=== PATIENT | female | born 1995 | race Caucasian/White ===

== ENCOUNTER 2021-10-24 11:35 | Outpatient (CLI) | payer BC ==
[2021-10-24 12:42] LABS: Creatinine,Urine Random 83.1 mg/dL; Protein/Creatinine Ratio,Urine 0.096
[2021-10-24 12:44] LABS: Appearance,Urine Clear (Clear); Bacteria,Urine Rare /hpf; Bilirubin,Urine Negative (Negative); Blood,Urine Negative (Negative); Color,Urine Yellow; Glucose,Urine (UA) Negative (Negative); Ketones,Urine Negative (Negative); Leukocyte Esterase,Urine Large (Negative); Mucus,Urine Rare /hpf; Nitrite,Urine Negative (Negative); PH, Urine 6.5 (5.0-8.0); Protein,Urine Negative (Negative); Specific Gravity,Urine 1.016 (1.001-1.035); Squamous Epithelial Cell,Urine 3 /hpf (0-4); Urobilinogen,Urine <2.0 mg/dL (<2.0); WBC,Urine 11 /hpf (0-5)
[2021-10-24 13:07] LABS: Basophils % (A) 0 %; Eosinophils # (A) 0.2 k/uL (0-0.7); Eosinophils % (A) 2 %; HCT 35.7 % (34.0-46.0); HGB 12.8 gm/dL (11.4-16.0); Lymphocytes # (A) 1.6 k/uL (1.0-4.8); Lymphocytes % (A) 18 %; MCH 32.4 pg (25.0-35.0); MCHC 35.9 g/dL (31.0-37.0); MCV 90.2 fL (80.0-100.0); Mean Platelet Volume 8.7; Monocytes # (A) 0.3 k/uL (0-1.0); Monocytes % (A) 4 %; Neutrophils # (A) 6.7 k/uL (1.3-7.7); Neutrophils % (A) 76 %; Platelet Count 195 k/uL (150-450); RBC 3.96 m/uL (3.80-5.40); RDW 12.7 % (11.5-15.5); WBC 8.8 k/uL (3.8-10.6)
[2021-10-24 13:40] LABS: ALT 12 U/L (4-34); AST 21 U/L (14-36); African American GFR (CKD) >90 (>60 ml/min/1.73 sqM); Blood Urea Nitrogen 10 mg/dL (7-17); LDH 404 U/L (313-618); Non-African American GFR(CKD) >90 (>60 ml/min/1.73 sqM); Uric Acid 5.1 mg/dL (3.7-7.4)
[2021-10-24 15:11] VITALS: BP 135/85; PULSE 109; RESP 17; TEMP 97.9
--- NOTE | 2021-12-15 09:22 | P.MSEPDOC ---
Presenting Problems - Arrival Data Date of Arrival on Unit: 10/24/21 Time of Arrival on Unit: 11:35 Mode of Transport: Ambulatory - Complaint OB-Reason for Admission/Chief Complaint: Acute Nausea/Vomiting, Headache Comment: pt presented to triage for elevated bp's, headache and nausea for the last couple of days Medical History - Information : 2 Para: 1 Term: 1 : 0 Abortions: Spontaneous or Elective: 0 Number of Living Children: 1 - Gestational Age Gestational Age by STACEY (wks/days): 35 Weeks and 5 Days Review of Systems - Review of Systems Constitutional: No problems Breast: No problems ENT: No problems Cardiovascular: No problems Respiratory: No problems Gastrointestinal: No problems Genitourinary: No problems Musculoskeletal: No problems Neurological: No problems Skin: No problems Vital Signs - Temperature Temperature: 97.9 F Temperature Source: Temporal Artery Scan - Pulse Right Brachial Pulse Rate: 109 Pulse Assessment Method: Automatic Cuff - Respirations Respiratory Rate: 17 Oxygen Delivery Method: Room Air O2 Sat by Pulse Oximetry: 98 - Blood Pressure Right Arm Blood Pressure: 135/85 Blood Pressure Mean: 101 Blood Pressure Source: Automatic Cuff Medical Screen Scoring - Cervical Exam Dilation (cm): 0 Membranes: Intact - Uterine Contractions Frequency From (mins): 3 Frequency To (mins): 6 Duration From (seconds): 40 Duration To (seconds): 60 Intensity: Mild Resting: Soft to palpation - Assessment - Baby A Baseline FHR: 135 Heart Rate - NICHD Category: Category I (Normal) NST: Reactive Physician Notification - Physician Notified Physician Notified Date: 10/24/21 Physician Notified Time: 12:00 Physician: Wayne Melendez New Order Received: Yes - Notification Comment Comment: PIH labs obtained, all WNL, cervix closed/thick/high, discharge home and follow up on at office for bp check Maternal Triage Index - Maternal Triage Index Presenting for scheduled procedure w/no complaint: No - Stat/Priority 1 Stat Priority 1: No - Urgent/Priority 2 Urgent Priority 2: Yes Provider Notified: Wayne Melendez Provider Notified Time: 12:00 Criteria Met for Priority 2: pt is 35 5/7 GA, c/o elevated bp's at home with Disposition - Disposition OB Disposition: Triage, Discharge to home, Written follow up instructions reviewed Discharge Date: 10/24/21 Discharge Time: 14:15 I agree with the RN Medical Screening Exam: Yes Physician's MSE Comment: I have neither seen nor examined the patient. Case reviewed; plan agreed upon as documented in EMR&OBIX.: Yes Diagnosis: RELATED CONDITIONS, UNSPECIFIED, THIRD TRIMESTER
== END 2021-10-24 14:15 | disposition home or self-care (01) ==
LOC: FBPOP 11:35
PROVIDERS: ATTEND Obstetrics & Gynecology
DX: O26.893 Other specified pregnancy related conditions, third trimester (principal); R11.0 Nausea; Z3A.35 35 weeks gestation of pregnancy; Z88.0 Allergy status to penicillin; Z88.1 Allergy status to other antibiotic agents; Z91.030 Bee allergy status
CPT/HCPCS: 59025; 81001; 82565; 82570; 83615; 84156; 84450; 84460; 84520; 84550; 85025; 99215

== ENCOUNTER 2021-10-31 13:59 | Outpatient (CLI) | payer BC ==
[2021-10-31] MEDS: LACTATED RINGERS 1,000 ML IV SCH ×2 (15:05→18:20)
[2021-10-31 15:19] LABS: Basophils % (A) 0 %; Eosinophils # (A) 0.1 k/uL (0-0.7); Eosinophils % (A) 1 %; HCT 37.6 % (34.0-46.0); HGB 12.7 gm/dL (11.4-16.0); Lymphocytes # (A) 1.5 k/uL (1.0-4.8); Lymphocytes % (A) 19 %; MCH 31.7 pg (25.0-35.0); MCHC 33.7 g/dL (31.0-37.0); MCV 94.1 fL (80.0-100.0); Mean Platelet Volume 9.3; Monocytes # (A) 0.3 k/uL (0-1.0); Monocytes % (A) 3 %; Neutrophils % (A) 75 %; Platelet Count 188 k/uL (150-450); RDW 12.5 % (11.5-15.5)
[2021-10-31 15:19] LABS: Appearance,Urine Clear (Clear); Bacteria,Urine Rare /hpf; Bilirubin,Urine Negative (Negative); Blood,Urine Negative (Negative); Budding Yeast,Urine Occasional /hpf; Color,Urine Yellow; Glucose,Urine (UA) Negative (Negative); Ketones,Urine 1+ (Negative); Leukocyte Esterase,Urine Large (Negative); Mucus,Urine Few /hpf; Nitrite,Urine Negative (Negative); Protein,Urine Trace (Negative); RBC,Urine 2 /hpf (0-5); Specific Gravity,Urine 1.019 (1.001-1.035); Squamous Epithelial Cell,Urine 2 /hpf (0-4); Urobilinogen,Urine <2.0 mg/dL (<2.0); WBC,Urine 20 /hpf (0-5)
[2021-10-31 15:22] LABS: ALT 11 U/L (4-34); AST 18 U/L (14-36); African American GFR (CKD) >90 (>60 ml/min/1.73 sqM); Blood Urea Nitrogen 10 mg/dL (7-17); LDH 380 U/L (313-618); Non-African American GFR(CKD) >90 (>60 ml/min/1.73 sqM); Uric Acid 5.2 mg/dL (3.7-7.4)
[2021-10-31 15:36] LABS: Creatinine,Urine Random 131.6 mg/dL; Protein/Creatinine Ratio,Urine 0.084
[2021-10-31 18:12] VITALS: BP 142/90; PULSE 109; RESP 18; TEMP 97.3
--- NOTE | 2021-12-15 09:23 | P.MSEPDOC ---
Presenting Problems - Arrival Data Date of Arrival on Unit: 10/31/21 Time of Arrival on Unit: 14:00 Mode of Transport: Ambulatory - Complaint OB-Reason for Admission/Chief Complaint: Rule Out PROM, PIH Medical History - Information : 2 Para: 1 Term: 0 : 1 Abortions: Spontaneous or Elective: 0 Number of Living Children: 1 - Gestational Age Gestational Age by STACEY (wks/days): 36 Weeks and 5 Days Review of Systems - Review of Systems Constitutional: No problems Breast: No problems ENT: No problems Cardiovascular: No problems Respiratory: No problems Gastrointestinal: No problems Genitourinary: No problems Musculoskeletal: No problems Neurological: No problems Skin: No problems Vital Signs - Temperature Temperature: 97.3 F Temperature Source: Temporal Artery Scan - Pulse Right Pulse Rate: 109 Pulse Assessment Method: Pulse Oximetry - Respirations Respiratory Rate: 18 Oxygen Delivery Method: Room Air - Blood Pressure Right Arm Blood Pressure: 142/90 Blood Pressure Mean: 107 Blood Pressure Source: Automatic Cuff Medical Screen Scoring - Cervical Exam Dilation (cm): 2 Effacement (%): 0 Station: -2 Membranes: Intact - Uterine Contractions Frequency From (mins): 8 Frequency To (mins): 9 Duration From (seconds): 70 Duration To (seconds): 80 Intensity: Mild Resting: Soft to palpation - Assessment - Baby A Baseline FHR: 130 Heart Rate - NICHD Category: Category I (Normal) NST: Reactive Physician Notification - Physician Notified Physician Notified Date: 10/31/21 Physician Notified Time: 16:00 Physician: Dr. Villela New Order Received: Yes Maternal Triage Index - Stat/Priority 1 Stat Priority 1: Yes Provider Notified: Dr. Villela Provider Notified Time: 16:00 Criteria Met for Priority 1: Orders for discharge home with instructions. Disposition - Disposition OB Disposition: Discharge to home Discharge Date: 10/31/21 Discharge Time: 16:00 I agree with the RN Medical Screening Exam: Yes Physician's MSE Comment: I have neither seen nor examined the patient. Case reviewed; plan agreed upon as documented in EMR&OBIX.: Yes Diagnosis: RELATED CONDITIONS, UNSPECIFIED, THIRD TRIMESTER
== END 2021-10-31 16:13 | disposition home or self-care (01) ==
LOC: FBPOP 13:59
PROVIDERS: ATTEND Obstetrics & Gynecology Obstetrics
DX: O13.3 Gestational [pregnancy-induced] hypertension without significant proteinuria, third trimester (principal); Z3A.36 36 weeks gestation of pregnancy; Z88.0 Allergy status to penicillin; Z91.030 Bee allergy status; Z88.1 Allergy status to other antibiotic agents
CPT/HCPCS: 59025; 81001; 82565; 82570; 83615; 84112; 84156; 84450; 84460; 84520; 84550; 85025; 96360; 96361; 99214; 99215

== ENCOUNTER 2021-11-13 09:49 | Inpatient (IN) | payer BC ==
[2021-11-13] MEDS ORDERED: TERBUTALINE 1 MG/ML VIAL SQ PRN (10:03)
[2021-11-13] MEDS ORDERED: CARBOPROST TROMETHAMINE 250 MCG/ML 1 ML AMP IM PRN (10:03)
[2021-11-13] MEDS ORDERED: METHYLERGONOVINE 0.2 MG/ML 1 ML AMP IM PRN (10:03)
[2021-11-13] MEDS ORDERED: OXYTOCIN 10 UNIT/ML 1 ML VIAL IM PRN (10:03)
[2021-11-13] MEDS ORDERED: LIDOCAINE 0.5% (PF) 5 MG/ML (50 ML SDV) SQ PRN (10:03)
[2021-11-13] MEDS ORDERED: LIDOCAINE 1% (10MG/ML) FOR IV START INTRADERMA PRN (10:03)
[2021-11-13] MEDS ORDERED: OXYTOCIN 30 UNITS/500 ML NS 30 UNIT in SALINE 1 500ML.BAG IV SCH ×2 (10:15→17:45)
[2021-11-13] MEDS: LACTATED RINGERS 1,000 ML IV SCH ×3 (11:10→16:01)
[2021-11-13] MEDS ORDERED: BUTORPHANOL 1 MG/ML 1 ML VIAL IV PRN (11:13)
--- NOTE | 2021-11-13 11:17 | P.HPOB ---
History of Present Illness H&P Date: 11/13/21 Chief Complaint: Adán 8+ weeks, spontaneous rupture of membranes, labor the patient is a 26-year-old 3 para 0111 admitted at 38+ weeks as established by 6 week ultrasound. She is admitted with documented spontaneous rupture of membranes in early labor with all signs reassuring, category 1 heart rate tracing. Her has been Treated only by mild induce hypertension with negative laboratory workup for preeclampsia on 2 occasions. Her is otherwise been uncomplicated and group B strep status is negative. Obstetrical history: 3 para 0111 with a previous 36+ week delivery without complications. Current statistics are listed in history present illness. EDC of 11/23/2021 was established by 6 week ultrasound. Laboratory workup demonstrates a blood type of O+ with a negative antibody screen. Rubella status is nonimmune. Remainder of the laboratory workup was within normal limits. One hour Glucola was elevated but followed by a normal three-hour glucose tolerance test. Group B strep status is negative. Gynecologic history: Unremarkable with no history of any infections to include STDs. Review of Systems review of systems is confined to history of present illness. Past Medical History Past Medical History: No Reported History History of Any Multi-Drug Resistant Organisms: None Reported Past Surgical History: No Surgical Hx Reported Past Psychological History: Anxiety Smoking Status: Never smoker Past Alcohol Use History: None Reported Past Drug Use History: None Reported - Past Family History Father Additional Family Medical History / Comment(s): father had a stroke at age 30 Medications and Allergies Home Medications Medication Instructions Recorded Confirmed Type Pnv No.95/Ferrous Fum/Folic AC 1 each PO DAILY 10/24/21 11/13/21 History [ Multivitamin Tablet] Allergies Allergy/AdvReac Type Severity Reaction Status Date / Time bee venom protein (honey bee) Allergy Rash/Hives Verified 11/13/21 10:03 amoxicillin AdvReac Nausea & Verified 11/13/21 10:03 Vomiting Penicillins AdvReac Nausea & Verified 11/13/21 10:03 Vomiting Exam Vital Signs Temp Pulse Resp BP Pulse Ox 11/13/21 10:22 97.8 F 83 20 122/82 11/13/21 10:02 97.8 F 83 20 122/88 98 Intake and Output 11/12/21 11/13/21 11/13/21 22:59 06:59 14:59 Other: Weight 72.121 kg in general, this is a well-developed, well-nourished white female in no acute distress. Her heart has a regular rhythm and rate without murmur. Her lungs clear to auscultation bilaterally in all pimentel. Abdomen is gravid, nondistended, has normal active bowel sounds, soft, nontender, and without any palpable masses aside from uterine fundus. Her extremities without any cyanosis, clubbing, or edema and are nontender to palpation bilaterally. D igital cervical examination demonstrated to surgery approximate 4 synovators dilated, 60% effaced, with the vertex in presentation at -2-3 station. Spontaneous rupture of membranes is documented. Assessment and Plan (1) Spontaneous rupture of amniotic membranes Current Visit: No Status: Acute Code(s): KYC6371 - SNOMED Code(s): 657565407 (2) Active labor at term Current Visit: No Status: Acute Code(s): NBN9617 - SNOMED Code(s): 73227787 Plan: the patient is admitted for active management of labor. She will have close maternal and surveillance and expectant management will be practiced. She is a good candidate for either IV or epidural analgesia, whichever she may choose. Should she made no significant progress over the next hour, Pitocin augmentation will be started.
[2021-11-13 11:18] LABS: Basophils % (A) 0 %; Eosinophils # (A) 0.2 k/uL (0-0.7); Eosinophils % (A) 2 %; HCT 39.2 % (34.0-46.0); HGB 13.4 gm/dL (11.4-16.0); Lymphocytes # (A) 1.7 k/uL (1.0-4.8); Lymphocytes % (A) 18 %; MCH 32.2 pg (25.0-35.0); MCHC 34.1 g/dL (31.0-37.0); MCV 94.4 fL (80.0-100.0); Monocytes # (A) 0.3 k/uL (0-1.0); Monocytes % (A) 3 %; Neutrophils # (A) 7.1 k/uL (1.3-7.7); Neutrophils % (A) 76 %; Platelet Count 190 k/uL (150-450); RBC 4.16 m/uL (3.80-5.40); RDW 12.7 % (11.5-15.5); WBC 9.4 k/uL (3.8-10.6)
[2021-11-13] MEDS ORDERED: ROPIVACAINE 100 MG, fentaNYL (PF). 200 MCG in SODIUM CHLORIDE 0.9% 76 ML EPIDURAL ONE (12:31)
[2021-11-13] MEDS ORDERED: ZOLPIDEM 5 MG TAB PO PRN (17:33)
[2021-11-13] MEDS ORDERED: ACETAMINOPHEN TAB 325 MG TAB PO PRN (17:33)
[2021-11-13] MEDS ORDERED: HYDROcodone/APAP 5-325MG 1 EACH TAB PO PRN (17:33)
[2021-11-13] MEDS ORDERED: LANOLIN CREAM 5 GM TUBE TOPICAL PRN (17:33)
[2021-11-13] MEDS ORDERED: diphenhydrAMINE 50 MG/ML 1 ML VIAL IVP PRN ×2 (17:33)
[2021-11-13] MEDS ORDERED: diphenhydrAMINE 50 MG CAP PO PRN (17:33)
[2021-11-13] MEDS ORDERED: diphenhydrAMINE 25 MG CAP PO PRN (17:33)
[2021-11-13] MEDS ORDERED: BENZOCAINE/MENTHOL SPRAY 1 GM/SPRAY AEROSOL TOPICAL PRN (17:33)
[2021-11-13] MEDS ORDERED: SIMETHICONE 80 MG CHEWABLE PO PRN (17:33)
[2021-11-13] MEDS ORDERED: HYDROcodone/APAP 7.5-325MG 1 EACH TAB PO PRN (17:33)
[2021-11-13] MEDS ORDERED: HYDROCORTISONE 2.5% RECTAL CREAM 30 GM TUBE RECTAL PRN (17:33)
--- NOTE | 2021-11-13 17:37 | P.PROBDLV ---
Vaginal Delivery Note - . Vaginal Delivery Note: the patient is a 26-year-old 2 para 0111 admitted at 38-4/7 weeks by good dating parameters perches admitted with documented spontaneous rupture of membranes for clear fluid. Her has been uncomplicated and group B strep status is negative. On admission, all signs reassuring with a category 1 heart rate tracing. She had an epidural catheter placed for analgesia at the onset of the active phase of labor and then had Pitocin augmentation star sonal. She made progress to the afternoon to complete and +1 station. She pushed over the course of approximately 4 contractions to a normal spontaneous vaginal delivery of a viable 7 lbs. 13 oz. baby boy with Apgars of 9 at 1 minute and 9 at 5 minutes delivered in the right occiput anterior position. There was a nuchal cord times to which were reduced following delivery of the . The placenta was delivered spontaneously, intact, and grossly normal with a grossly normal three-vessel cord inserted approximately 3-4 cm from the margin of the placental disc. There is additionally noted to be a true knot in the cord as well as the cord being quite long. There was a small first-degree perineal laceration over the site of a previous laceration which was repaired in standard fashion with a simple jqakij-dl-palpr stitch of 3-0 chromic catgut without difficulty. Estimated blood loss for the case is approximately 200 mL. There were no compilations. All sponge, instrument, and needle counts were correct. Both mother and are resting comfortably in recovery.
[2021-11-13 17:46] VITALS: RESP 16
[2021-11-13] MEDS: IBUPROFEN 600 MG TAB PO PRN (19:38)
[2021-11-13] MEDS: SENNOSIDES-DOCUSATE SODIUM 1 EACH TAB PO SCH (19:39)
[2021-11-14] MEDS: IBUPROFEN 600 MG TAB PO PRN ×3 (01:48→17:36)
[2021-11-14] MEDS ORDERED: MEASLES-MUMPS-RUBELLA VACC/PF 12,500 UNIT/0.5 ML VIAL SQ ONE (04:06)
[2021-11-14 07:31] LABS: Basophils % (A) 0 %; Eosinophils # (A) 0.2 k/uL (0-0.7); Eosinophils % (A) 2 %; HCT 31.6 % (34.0-46.0); HGB 11.1 gm/dL (11.4-16.0); Lymphocytes % (A) 21 %; MCH 33.3 pg (25.0-35.0); MCHC 35.1 g/dL (31.0-37.0); MCV 94.7 fL (80.0-100.0); Mean Platelet Volume 9.4; Monocytes # (A) 0.3 k/uL (0-1.0); Monocytes % (A) 4 %; Neutrophils # (A) 6.9 k/uL (1.3-7.7); Neutrophils % (A) 73 %; Platelet Count 168 k/uL (150-450); RBC 3.34 m/uL (3.80-5.40); RDW 12.8 % (11.5-15.5); WBC 9.5 k/uL (3.8-10.6)
[2021-11-14] MEDS: SENNOSIDES-DOCUSATE SODIUM 1 EACH TAB PO SCH (08:04)
--- NOTE | 2021-11-14 08:43 | P.DS ---
Providers Date of admission: 11/13/21 09:49 Expected date of discharge: 11/14/21 Attending physician: Wayne Melendez Primary care physician: Stated None - Discharge Diagnosis(es) (1) Spontaneous rupture of amniotic membranes Current Visit: No Status: Acute (2) Active labor at term Current Visit: No Status: Acute (3) Normal spontaneous vaginal delivery Current Visit: No Status: Acute Hospital Course: the patient is a 26-year-old 3 para 0111 admitted at 38-4/7 weeks by good dating parameters. She is admitted with documented spontaneous rupture of membranes in early labor with all signs reassuring. Her was entirely uncomplicated though she did have mild -induced hypertension not requiring medications with a negative workup for preeclampsia on 2 occasions. Group B strep status is negative. On labor and delivery, she had an epidural catheter placed for analgesia and then underwent Pitocin augmentation. She progressed through the active phase of labor to complete and then pushed to a normal spontaneous vaginal delivery of a viable 7 lbs. 13 oz. baby boy with Apgars of 9 at 1 minute and 9 at 5 minutes. Her course was unremarkable with vital signs remaining stable and her temperature was afebrile throughout. She was deemed stable for discharge on day #1 was discharged home to follow-up in the office in 6 weeks' time routinely. Discharge instructions included calling for any significantly increased bleeding or foul-smelling lochia, significantly increased fever or abdominal pain, perineal complaints, breast complaints, or anything else that concerned her. She was additionally instructed to have nothing in the vagina for at least 6 weeks time to include intercourse. She understood her instructions and agrees to follow up as noted above. Discharge medications included [id number] analgesic pain medications as well as continued vitamins as she has opted to breast-feed. Maternal blood type is O+ and rubella status is nonimmu ne. She therefore was to receive the MMR vaccination prior to discharge. Procedures: #1. Epidural analgesia #2. Pitocin augmentation #3. Normal spontaneous vaginal delivery #4. Repair of perineal laceration Patient Condition at Discharge: Stable Plan - Discharge Summary New Discharge Prescriptions: No Action Pnv No.95/Ferrous Fum/Folic AC [ Multivitamin Tablet] 1 each PO DAILY Discharge Medication List Pnv No.95/Ferrous Fum/Folic AC [ Multivitamin Tablet] 1 each PO DAILY 10/24/21 [History] Follow up Appointment(s)/Referral(s): Wayne Melendez MD [STAFF PHYSICIAN] - 6 Weeks Discharge Disposition: HOME SELF-CARE
[2021-11-14 17:45] VITALS: BP 136/80; PULSE 79; TEMP 97.9
== END 2021-11-14 18:26 | disposition home or self-care (01) | DRG 807 ==
LOC: 4FBP 09:49
PROVIDERS: ADMIT Obstetrics & Gynecology; ATTEND Obstetrics & Gynecology
PROC: 10E0XZZ Delivery of Products of Conception, External Approach (ICD-10-PCS; principal; 2021-11-13)
PROC: 0HQ9XZZ Repair Perineum Skin, External Approach (ICD-10-PCS; 2021-11-13)
PROC: 3E033VJ Introduction of Other Hormone into Peripheral Vein, Percutaneous Approach (ICD-10-PCS; 2021-11-13)
DX: O13.4 Gestational [pregnancy-induced] hypertension without significant proteinuria, complicating childbirth (principal); Z37.0 Single live birth; F41.9 Anxiety disorder, unspecified; O69.2XX0 Labor and delivery complicated by other cord entanglement, with compression, not applicable or unspecified; O70.0 First degree perineal laceration during delivery; O99.344 Other mental disorders complicating childbirth; Z3A.38 38 weeks gestation of pregnancy; Z88.1 Allergy status to other antibiotic agents; Z88.0 Allergy status to penicillin
CPT/HCPCS: 85025; 86850; 86900; 86901; 90707

== ENCOUNTER 2023-04-16 16:20 | Emergency (ER) | payer BC ==
[2023-04-16 16:46] VITALS: BP 139/68; PULSE 76; RESP 18; TEMP 98.4
[2023-04-16] MEDS ORDERED: PANTOPRAZOLE 40 MG/10 ML VIAL IVP STA (17:13)
[2023-04-16] MEDS ORDERED: SODIUM CHLORIDE 0.9% 1,000 ML IV STA (17:13)
[2023-04-16] MEDS ORDERED: MAG HYDROX/AL HYDROX/SIMETH 30 ML, HYOSCYAMINE ELIXIR 10 ML PO STA ×2 (17:14)
[2023-04-16] MEDS ORDERED: ONDANSETRON 4 MG/2 ML VIAL IVP STA (17:14)
--- NOTE | 2023-04-16 17:20 | ED ---
Abdominal Pain HPI - General Chief Complaint: Abdominal Pain Stated Complaint: VOM BLOOD-ABD PAIN Time Seen by Provider: 04/16/23 17:04 Source: patient, RN notes reviewed Mode of arrival: ambulatory Limitations: no limitations - History of Present Illness Initial Comments: This is a 27-year-old female who presents to the emergency department for abdominal pain and hematemesis. States that she started developing epigastric pain 2 days ago, and this morning she had 2 episodes where she threw up blood. States that this was not very bright or very dark and she noticed a small clot. She continues to have the pain. She had a small tear in her stomach lining when she was 16, but cannot recall if she through up blood at that time. She does not have any problems with acid reflux but states that she does feel a burning sensation in her chest and upper abdomen. Denies any fevers, chills, sore throat, cough, dyspnea, palpitations, diarrhea, back pain, or headaches. MD Complaint: abdominal pain Onset/Timin -: days(s) Location: epigastric Associated Symptoms: nausea, vomiting, hematemesis - Related Data Previous Rx's Medication Instructions Recorded Ondansetron Odt [Zofran Odt] 4 mg PO Q8HR PRN #15 tab 04/16/23 Pantoprazole [Protonix] 40 mg PO DAILY 14 Days #14 tab 04/16/23 Sucralfate [Carafate] 1 gm PO QID 7 Days #28 tablet 04/16/23 Allergies Allergy/AdvReac Type Severity Reaction Status Date / Time bee venom protein (honey bee) Allergy Rash/Hives Verified 04/16/23 19:04 amoxicillin AdvReac Nausea & Verified 04/16/23 19:04 Vomiting Penicillins AdvReac Nausea & Verified 04/16/23 19:04 Vomiting Review of Systems ROS Statement: Those systems with pertinent positive or pertinent negative responses have been documented in the HPI. ROS Other: All systems not noted in ROS Statement are negative. Past Medical History Past Medical History: No Reported History History of Any Multi-Drug Resistant Organisms: None Reported Past Surgical History: No Surgical Hx Reported Past Psychological History: Anxiety Smoking Status: Never smoker Past Alcohol Use History: None Reported Past Drug Use History: None Reported - Past Family History Father Additional Family Medical History / Comment(s): father had a stroke at age 30 General Exam Limitations: no limitations General appearance: alert, in no apparent distress Head exam: Present: atraumatic, normocephalic, normal inspection Respiratory exam: Present: normal lung sounds bilaterally. Absent: respiratory distress, wheezes, rales, rhonchi, stridor Cardiovascular Exam: Present: regular rate, normal rhythm, normal heart sounds. Absent: systolic murmur, diastolic murmur, rubs, gallop, clicks GI/Abdominal exam: Present: soft, tenderness (Epigastric), normal bowel sounds. Absent: distended Neurological exam: Present: alert, oriented X3, CN II-XII intact Psychiatric exam: Present: normal affect, normal mood Skin exam: Present: warm, dry, intact, normal color. Absent: rash Course Vital Signs 04/16/23 16:44 Temperature 98.4 F Pulse Rate 76 Respiratory 18 Rate Blood Pressure 139/68 O2 Sat by Pulse 100 Oximetry Medical Decision Making - Medical Decision Making This is a 19-year-old female who presents to the emergency department for abdominal pain and hematemesis. Was pt. sent in by a medical professional or institution? @ -No Did you speak to anyone other than the patient for history? @ -No Did you review nursing and triage notes? @ -Yes, and I agree, it is accurate with regards to the patient's symptoms. Were old charts reviewed? @ -No Differential Diagnosis? @ -Differential Abdominal Pain Women: Appendicitis, Cholecystitis, diverticulosis, ischemic bowel, pancreatitis, hepatitis, UTI, gastroenteritis, AAA, incarcerated hernia, bowel obstruction, constipation, inflammatory bowel, hepatitis, peptic ulcer disease, splenic infarction, perforated viscus, vulvitis, ovarian torsion, PID, kidney stone, placenta abruption, this is not meant to be an all-inclusive list EKG interpreted by me (3pts min.)? @ -Not obtained X-rays interpreted by me (1pt min.)? @ -Not obtained CT interpreted by me (1pt min.)? @ -Computed tomography scan of the abdomen and pelvis obtained. My interpretation identifies no evidence of bowel wall thickening or free air. U/S interpreted by me (1pt. min.)? @ -Not obtained What testing was considered but not performed? (CT, X-rays, U/S, labs)? Why? @ -None What meds were considered but not given? Why? @ -None Did you discuss the management of the patient with other professionals? @ -No Did you reconcile home meds? @ -No Was smoking cessation discussed for >3mins.? @ -No Was critical care preformed (if so, how long)? @ -No Were there social determinants of health that impacted care today? How? (Homelessness, low income, unemployed, alcoholism, drug addiction, transportation, low edu. Level, literacy, decrease access to med. care, fdc, rehab)? @ -No Was there de-escalation of care discussed even if they declined? (Discuss DNR or withdrawal of care, Hospice)? @ -No What co-morbidities impacted this encounter? (DM, HTN, Smoking, COPD, CAD, Cancer, CVA, Hep., AIDS, mental health diagnosis, sleep apnea, morbid obesity)? @ -None Was patient admitted / discharged? @ -Discharged. Lab work obtained revealing mild leukocytosis and was otherwise nonactionable. Computed tomography scan of the abdomen and pelvis obtained revealing no acute findings. She is initially given IV fluids, Zofran, Protonix, and a GI cocktail. States that she did have notable relief in symptoms afterwards. She was able to drink water without difficulty. Discussed that this may be related to a peptic ulcer or Abigail-Scott tear. Rx for Protonix, Carafate, and Zofran provided with dosing instructions reviewed. She is instructed to remain well-hydrated and slowly advance her diet as tolerated. She was also given information for GI follow-up, she is instructed to contact them for a follow-up appointment. Undiagnosed new problem with uncertain prognosis? @ -None Drug Therapy requiring intensive monitoring for toxicity (Heparin, Nitro, Insulin, Cardizem)? @ -None Were any procedures done? @ -None Diagnosis/symptom? @ -Hematemesis, gastritis Acute, or Chronic, or Acute on Chronic? @ -Acute Uncomplicated (without systemic symptoms) or Complicated (systemic symptoms)? @ -Uncomplicated Side effects of treatment? @ -None Exacerbation, Progression, or Severe Exacerbation] @ -Not applicable Poses a threat to life or bodily function? @ -This will depend on the cause of her symptoms. Return precautions reviewed in depth, the patient is instructed to return to the emergency department with any new, worsening, or concerning symptoms. Patient verbalized understanding. This case was discussed in detail with the attending ED physician, Dr. Bartlett. Presentation, findings, and treatment plan discussed in detail as well. - Lab Data Result diagrams: 04/16/23 17:45 04/16/23 17:45 Lab Results 04/16/23 04/16/23 04/16/23 Range/Units 17:45 17:45 17:45 WBC 12.1 H (3.8-10.6) k/uL RBC 4.69 (3.80-5.40) m/uL Hgb 14.0 (11.4-16.0) gm/dL Hct 41.7 (34.0-46.0) % MCV 88.9 (80.0-100.0) fL MCH 29.9 (25.0-35.0) pg MCHC 33.7 (31.0-37.0) g/dL RDW 12.9 (11.5-15.5) % Plt Count 327 (150-450) k/uL MPV 7.6 Neutrophils % 85 % Lymphocytes % 11 % Monocytes % 2 % Eosinophils % 1 % Basophils % 0 % Neutrophils # 10.3 H (1.3-7.7) k/uL Lymphocytes # 1.3 (1.0-4.8) k/uL Monocytes # 0.3 (0-1.0) k/uL Eosinophils # 0.1 (0-0.7) k/uL Basophils # 0.0 (0-0.2) k/uL PT 9.9 (9.0-12.0) sec INR 0.9 (<1.2) APTT 25.7 (22.0-30.0) sec Sodium 138 (137-145) mmol/L Potassium 4.0 (3.5-5.1) mmol/L Chloride 99 (98-107) mmol/L Carbon Dioxide 27 (22-30) mmol/L Anion Gap 12 mmol/L BUN 16 (7-17) mg/dL Creatinine 0.58 (0.52-1.04) mg/dL Est GFR (CKD-EPI)AfAm >90 (>60 ml/min/1.73 sqM) Est GFR (CKD-EPI)NonAf >90 (>60 ml/min/1.73 sqM) Glucose 131 H (74-99) mg/dL Lactic Ac Sepsis Rflx Plasma Lactic Acid Dario (0.7-2.0) mmol/L Calcium 9.5 (8.4-10.2) mg/dL Total Bilirubin 0.6 (0.2-1.3) mg/dL AST 21 (14-36) U/L ALT 20 (4-34) U/L Alkaline Phosphatase 76 (38-126) U/L Total Protein 8.0 (6.3-8.2) g/dL Albumin 4.7 (3.5-5.0) g/dL Amylase 76 (30-110) U/L Lipase 83 (23-300) U/L 04/16/23 04/16/23 Range/Units 17:45 18:33 WBC (3.8-10.6) k/uL RBC (3.80-5.40) m/uL Hgb (11.4-16.0) gm/dL Hct (34.0-46.0) % MCV (80.0-100.0) fL MCH (25.0-35.0) pg MCHC (31.0-37.0) g/dL RDW (11.5-15.5) % Plt Count (150-450) k/uL MPV Neutrophils % % Lymphocytes % % Monocytes % % Eosinophils % % Basophils % % Neutrophils # (1.3-7.7) k/uL Lymphocytes # (1.0-4.8) k/uL Monocytes # (0-1.0) k/uL Eosinophils # (0-0.7) k/uL Basophils # (0-0.2) k/uL PT (9.0-12.0) sec INR (<1.2) APTT (22.0-30.0) sec Sodium (137-145) mmol/L Potassium (3.5-5.1) mmol/L Chloride (98-107) mmol/L Carbon Dioxide (22-30) mmol/L Anion Gap mmol/L BUN (7-17) mg/dL Creatinine (0.52-1.04) mg/dL Est GFR (CKD-EPI)AfAm (>60 ml/min/1.73 sqM) Est GFR (CKD-EPI)NonAf (>60 ml/min/1.73 sqM) Glucose (74-99) mg/dL Lactic Ac Sepsis Rflx Y Plasma Lactic Acid Dario 2.1 H* (0.7-2.0) mmol/L Calcium (8.4-10.2) mg/dL Total Bilirubin (0.2-1.3) mg/dL AST (14-36) U/L ALT (4-34) U/L Alkaline Phosphatase (38-126) U/L Total Protein (6.3-8.2) g/dL Albumin (3.5-5.0) g/dL Amylase (30-110) U/L Lipase (23-300) U/L - Radiology Data Radiology results: report reviewed, image reviewed Disposition Clinical Impression: Gastritis, Peptic ulcer Disposition: HOME SELF-CARE Instructions (If sedation given, give patient instructions): Peptic Ulcer (ED), Gastritis (ED), Diet for Stomach Ulcers and Gastritis (ED) Additional Instructions: Return to the emergency department with any new, worsening, or concerning symptoms. Take the Protonix daily for 2 weeks. Take this 30-60 minutes before having anything else to eat or taking other medication for optimal effectiveness. Take the Carafate 4 times daily for the next 7 days. This will be taken about an hour before meals and at bedtime. The Zofran can be used up to every 8 hours as needed for nausea and vomiting. Avoid anti-inflammatories such as ibuprofen for the meantime, as this will cause further stomach upset. Contact gastroenterology as listed below for reevaluation. Follow up with your primary care provider in 1-2 days. Prescriptions: Sucralfate [Carafate] 1 gm PO QID 7 Days #28 tablet Pantoprazole [Protonix] 40 mg PO DAILY 14 Days #14 tab Ondansetron Odt [Zofran Odt] 4 mg PO Q8HR PRN #15 tab PRN Reason: Nausea And Vomiting Is patient prescribed a controlled substance at d/c from ED?: No Referrals: None,Stated [Primary Care Provider] - 1-2 days Samantha Collins MD [STAFF PHYSICIAN] - 1-2 days
[2023-04-16 18:09] LABS: Basophils % (A) 0 %; Eosinophils # (A) 0.1 k/uL (0-0.7); Eosinophils % (A) 1 %; HCT 41.7 % (34.0-46.0); Lymphocytes # (A) 1.3 k/uL (1.0-4.8); Lymphocytes % (A) 11 %; MCH 29.9 pg (25.0-35.0); MCHC 33.7 g/dL (31.0-37.0); MCV 88.9 fL (80.0-100.0); Mean Platelet Volume 7.6; Monocytes # (A) 0.3 k/uL (0-1.0); Monocytes % (A) 2 %; Neutrophils # (A) 10.3 k/uL (1.3-7.7); Neutrophils % (A) 85 %; Platelet Count 327 k/uL (150-450); RBC 4.69 m/uL (3.80-5.40); RDW 12.9 % (11.5-15.5); WBC 12.1 k/uL (3.8-10.6)
[2023-04-16 18:23] LABS: INR 0.9 (<1.2); Partial Thromboplastin Time 25.7 sec (22.0-30.0); Prothrombin Time 9.9 sec (9.0-12.0)
[2023-04-16 18:29] LABS: ALT 20 U/L (4-34); AST 21 U/L (14-36); African American GFR (CKD) >90 (>60 ml/min/1.73 sqM); Albumin 4.7 g/dL (3.5-5.0); Alkaline Phosphatase 76 U/L (38-126); Amylase 76 U/L (30-110); Anion Gap 12 mmol/L; Blood Urea Nitrogen 16 mg/dL (7-17); Calcium 9.5 mg/dL (8.4-10.2); Carbon Dioxide 27 mmol/L (22-30); Chloride 99 mmol/L (98-107); Glucose 131 mg/dL (74-99); Lipase 83 U/L (23-300); Non-African American GFR(CKD) >90 (>60 ml/min/1.73 sqM); Sodium 138 mmol/L (137-145); Total Bilirubin 0.6 mg/dL (0.2-1.3)
--- NOTE | 2023-04-16 18:51 | CT ---
EXAMINATION TYPE: CT abdomen pelvis w con DATE OF EXAM: 04/16/2023 COMPARISON: None INDICATION: abdominal pain, vomiting blood DLP: 742.6 mGycm, Automated exposure control for dose reduction was used. CONTRAST: 100 mL of Isovue 300. Study performed without Oral Contrast TECHNIQUE: Axial images were obtained from above the diaphragm to the pubic rami in the axial plane a t 5 mm thick sections. Reconstructed images are reviewed on the computer in the coronal plane. FINDINGS: Limited CT sections are obtained the lung bases. The lung bases are clear. CT ABDOMEN: Liver: Normal Spleen: Normal Pancreas: Normal Adrenal glands: The adrenal glands are normal. Gallbladder: Normal Kidneys: No masses are evident. No hydronephrosis is present. No cysts are present. Delayed images were obtained through the kidneys, which remain unremarkable. Aorta: Normal Inferior vena cava: Normal. CT PELVIS: Loops of bowel within the abdomen and pelvis are normal. This study is without oral contrast limi ting bowel evaluation. Appendix: Normal as visualized. Urinary bladder: Normal. Genitourinary structures: Uterus is normal. There is a 1.4 cm left ovarian cyst. Multiple follicles o r right ovary. Osseous structures: No suspicious lytic or sclerotic lesions. IMPRESSIONS: 1. No suspicious acute abnormality. Follow-up can be performed as clinically indicated.
[2023-04-16] MEDS ORDERED: METOCLOPRAMIDE 5 MG/ML 2 ML VIAL IVP STA (19:04)
[2023-04-16] MEDS ORDERED: ONDANSETRON 4 MG ODT STARTER PACK 2 TAB BTL PO STA (19:05)
== END 2023-04-16 20:22 | disposition home or self-care (01) ==
LOC: EC 16:20
DX: K29.70 Gastritis, unspecified, without bleeding (principal); K27.9 Peptic ulcer, site unspecified, unspecified as acute or chronic, without hemorrhage or perforation; Z86.59 Personal history of other mental and behavioral disorders; Z88.0 Allergy status to penicillin; Z91.030 Bee allergy status
CPT/HCPCS: 36415; 80053; 82150; 83605; 83690; 85025; 85610; 85730; 74177; 99284; 96374; 96375 ×2; 96361 ×3; J2765; J2405; S0119; C9113; Q9967